=== PATIENT | male | born 1955 | race Caucasian/White ===

== ENCOUNTER 2023-12-05 09:41 | Emergency (ER) | payer OTHER, SELFPAY ==
[2023-12-05 09:46] VITALS: BP 131/81
--- NOTE | 2023-12-05 10:23 | ED.GENMED ---
History of Present Illness
<Lelia Amin PA-C - Last Filed: 12/05/23 18:11>
General
Chief Complaint: Back Pain
Source: patient
Exam Limitations: none
Time Seen by Provider: 12/05/23 09:58
Nursing documentation reviewed up to this point in time: agreed with
Travel History
Have you had any contact with someone who has COVID-19?: No
Do you have any symptoms of coronavirus? Fever > 100 degrees, chills, cough, shortness of breath, sore throat, loss of taste or smell, muscle aches, or headache?: No
History of Present Illness
History of Present Illness:
Patient is a 68-year-old male with history BPH, COPD presenting to the emergency department for evaluation of right lower back pain. Symptoms started acutely yesterday around 230 after he tripped and fell getting out of his car striking his back on
the open car door. He endorses an intermittent, sharp pain in right lower back that is worse with movement. He has no associated chest pain, shortness of breath, weakness/ numbness in lower extremities. He denies any dysuria or hematuria. He does
note some increased frequency of urination but states it is likely chronic due to his BPH.
Patient took a few regular strength Tylenol this morning with very minimal improvement.
Past History
<Lelia Amin PA-C - Last Filed: 12/05/23 18:11>
Past History
ED Past Medical History: COPD, GERD and Hypercholesterolemia
ED Past Surgical History: Appendectomy, Orthopedic and Other
Social History
Tobacco: Smoker
Drug: None
Personal: Other ()
Living: with family
Family History
Family History: Other
Phy Exam
<Lelia Amin PA-C - Last Filed: 12/05/23 18:11>
Physical Exam
Physical Exam:
General: In mild discomfort due to pain and non-toxic
Vitals: Vital signs stable, afebrile
HEENT: Atraumatic, normocephalic; pupils equal round reactive light bilaterally, no signs of trauma to face, protecting airway
Neck: appears supple, normal range of motion, no cervical spine or midline spinal tenderness
CV: Regular rate and rhythm, heart sounds normal, no evidence of cyanosis; chest wall nontender to palpation
Resp: Poor air movement bilaterally, no signs of respiratory distress no accessory muscle use
Abd: Soft, nontender, non-distended
Extremities: No deformities; strength 5 out of 5 in upper and lower extremities, sensation fully intact bilaterally
Back: Tenderness to right flank, no bruising or rash noted
Neuro: alert and oriented, speech normal, no focal motor deficits, no focal neurologic
Psych: Normal affect
Skin: Intact, no rashes or ecchymoses
Course
<Lelia Amin PA-C - Last Filed: 12/05/23 18:11>
Orders/Labs/Results
Orders:
Orders
12/05/23 10:36
Ketorolac [Toradol] 15 mg IM NOW STA
12/05/23 10:37
CT Abd/pel Without Iv Or Oral Urgent
Comment: recent fall, lateral rib pain
Reason For Exam: right flank pain
12/05/23 11:27
Urinalysis Reflex To Culture Urgent
Date Specimen was Collected: 12/05/23
Time Specimen was Collected: 11:18
Urine Microscopic Reflex Cult Urgent
Abnormal Lab Results
12/05/23
11:27
Leukocyte Esterase Rfl Trace A
(Negative)
Vital Signs
Initial and Last Documented VS:
Initial Vital Signs
Temp Pulse Resp BP Pulse Ox
98.1 F 77 18 131/81 98
12/05/23 09:46 12/05/23 09:46 12/05/23 09:46 12/05/23 09:46 12/05/23 09:46
Last Documented Vital Signs
Temp Pulse Resp BP Pulse Ox
98.1 F 76 18 108/80 94
12/05/23 09:46 12/05/23 13:50 12/05/23 13:50 12/05/23 13:50 12/05/23 13:50
<Vivek Campuzano DO - Last Filed: 12/05/23 10:37>
Orders/Labs/Results
Orders:
Orders
12/05/23 10:36
Ketorolac [Toradol] 15 mg IM NOW STA
12/05/23 10:37
CT Abd/pel Without Iv Or Oral Urgent
Comment: recent fall, lateral rib pain
Reason For Exam: right flank pain
12/05/23 11:27
Urinalysis Reflex To Culture Urgent
Date Specimen was Collected: 12/05/23
Time Specimen was Collected: 11:18
Urine Microscopic Reflex Cult Urgent
Abnormal Lab Results
12/05/23
11:27
Leukocyte Esterase Rfl Trace A
(Negative)
Vital Signs
Initial and Last Documented VS:
Initial Vital Signs
Temp Pulse Resp BP Pulse Ox
98.1 F 77 18 131/81 98
12/05/23 09:46 12/05/23 09:46 12/05/23 09:46 12/05/23 09:46 12/05/23 09:46
Last Documented Vital Signs
Temp Pulse Resp BP Pulse Ox
98.1 F 76 18 108/80 94
12/05/23 09:46 12/05/23 13:50 12/05/23 13:50 12/05/23 13:50 12/05/23 13:50
<Lelia Amin PA-C - Last Filed: 12/05/23 18:11>
MDM/Problems Addressed
Differential Diagnosis Includes:
Contusion, muscular strain, muscular spasm, hematoma, kidney stone
MDM/Problems Addressed:
Patient is 60-year-old male history of BPH, COPD presenting for evaluation of right flank pain following fall yesterday worse with movement. He fell backwards striking his right lower back on his open car door. He did not hit head or lose
conscious. He did not sustain any other injuries in fall. He denies any hematuria. He does have somewhat increased urinary frequency but likely due to BPH. Patient is well-appearing in mild distress due to pain. He is afebrile, hemodynamically
stable. Physical exam as documented above. He has tenderness to palpation of right flank and posterior lateral ribs. No bruising or rash noted to affected area. Given mechanism of injury�will get urinalysis and Noncontrast CT of abdomen pelvis.
Will give 15 Mg IM Toradol. Will reassess
Urinalysis shows no hematuria, with no signs of infection. CT shows no acute findings consistent with patient presentation, some constipation
Patient does note some improvement in pain following Toradol. His pain is now only occurring with lateral bending to the left. He is stable for discharge. Suspect likely contusion. Will send prescription for 60 mg ibuprofen as needed for pain.
Return precautions discussed. Discussed findings of constipation on CT. Recommended MiraLAX. Patient comfortable this plan. All questions answered.
Chronic conditions affecting care:
BPH, COPD, hyperlipidemia
Acute Exacerbation and/or Progression of Chronic Illness:
Contusion, constipation
<Lelia Amin PA-C - Last Filed: 12/05/23 18:11>
*Radiology
Radiology exam reviewed: preliminary read by ED provider and radiology read reviewed
*Pulse Oximetry
Patient hypoxic: no
*Revenue Coordinator Interpretation
Rate: Revenue Coordinator- N/A
*Critical Care Note
Total Time (30-74mins, 75-104mins- exclusive of procedures): Not Applicable
ED Attending Note
<Lelia Amin PA-C - Last Filed: 12/05/23 18:11>
-
Portions of this chart may have been created with voice recognition software.� Occasional wrong word or��sound alike� substitutions may have occurred due to the inherent limitations of voice recognition software.
<Vivek Campuzano, DO - Last Filed: 12/05/23 10:37>
ED Attending Note
Patient seen and examined by attending physician: Yes
I performed the substantive portion of visit, reviewed & personally made and approve the management plan that is documented in note by myself or TUNDE.: Yes
ED Attending Note:
I have seen and evaluated the patient with a [id number] encounter. I have spoken to the advance practicer provider and involved in the medical history, the physical exam, medical decision making.
Evaluation and management service: agree unless noted differently below.
Results interpretation: agree unless noted differently below.
Focused HPI: 68-year-old male presenting with recent fall. Patient now developing right flank pain. He does admit to increased urination but states this appears to be a chronic issue
Physical exam: Point tenderness to right flank along distal lateral ribs. No hematoma or rash noted
Medical Decision Making: Given his urinary symptoms, will obtain CT looking for evidence of kidney stone in addition looking for any evidence of rib fracture or hematoma
Discharge Plan
Departure
Patient Disposition: Home (Routine Discharge)
Date of Disposition: 12/05/23
Time of Disposition: 13:34
Patient with high blood pressure during this ER visit?: Yes
Condition: Good
Covid-19: Not Applicable
Discharge Problem:
Contusion, Constipation
Instructions: Constipation, Child (DC), Contusion (DC), BLOOD PRESSURE
Prescriptions:
New
ibuprofen 600 mg tablet
600 mg PO Q8H PRN (Reason: Pain) Qty: 15 0RF
No Action
atorvastatin [Lipitor] 80 MG tablet
80 mg PO DAILY
multivitamin 1 EACH tablet
1 ea PO DAILY
diphenhydramine HCl [Banophen] 25 MG capsule
50 mg PO HSPRN PRN (Reason: sleep)
albuterol sulfate 1 PUFF HFA aerosol inhaler
1 puff inhalation PRN PRN (Reason: sob)
ezetimibe
5 mg PO DAILY
Trelegy Ellipta
1 inh inhalation DAILY
doxycycline hyclate 100 mg capsule
100 mg PO BID 10 Days Qty: 20 0RF
prednisone 10 mg tablet
10 mg PO DIRECTED Qty: 30 0RF
Rx Instructions:
Taper as directed
Referrals:
[place] DO [Family Provider] -
Activity Restrictions/Additional Instructions:
- Return to the emergency room with any chest pain, shortness of breath, severe abdominal pain, intractable vomiting, significant flank pain, persistent blood in urine, numbness/tingling of lower extremities, weakness, worsening in current symptoms,
or any other concerns
-You can take ibuprofen 600 mg every 8 hours as needed for pain. This has been sent to your pharmacy. You can apply ice for comfort.
-Your CT scan performed today in the emergency department showed some signs of constipation. You can use MiraLAX twice a day for the next week. This can be purchased [id number].
-Follow-up with primary care for further evaluation/treatment
Interventions
Interventions:
*Risk Screen - Suicide Last Done: 12/05/23 09:47
*General Assessment Last Done: 12/05/23 09:47
*Neglect/Abuse Screening Last Done: 12/05/23 09:47
ED- Fall Risk Assessment Last Done: 12/05/23 13:44
*ED COVID-19 Vaccine History Last Done: 12/05/23 14:02
*Nursing Disposition Last Done: 12/05/23 14:02
ED-Musculoskeletal Assessment Last Done: 12/05/23 13:44
Discharge Date and Time
Discharge Date/Time: 12/05/23 13:55
[2023-12-05] MEDS: TORADOL 15 MG IM (11:11)
[2023-12-05 12:05] LABS: Urine Albumin Negative (Neg - Trace); Urine Bilirubin Negative (Negative); Urine Character Clear (Clear); Urine Color Yellow; Urine Glucose Negative (Negative); Urine Ketone Negative (Negative); Urine Leukocyte Trace (Negative); Urine Nitrite Negative (Negative); Urine Occult Blood Negative (Negative); Urine Specific Gravity 1.015 (<1.030); Urine Urobilinogen Negative (Neg - 1+); Urine pH 6.5 (5.0-9.0)
[2023-12-05 12:21] LABS: Urine Red Blood Cell 0-2 /HPF (0-2); Urine Squamous Cell 0-2 /LPF (Few)
[2023-12-05 13:50] VITALS: BP 108/80
== END 2023-12-05 13:55 | disposition home or self-care (01) ==
LOC: EMR 09:41
PROVIDERS: Physician Assistant; EMERGENCY PHYSICIAN Student in an Organized Health Care Education/Training Program; FAMILY PHYSICIAN Family Medicine
DX: S30.0XXA Contusion of lower back and pelvis, initial encounter (principal); K59.00 Constipation, unspecified; W19.XXXA Unspecified fall, initial encounter; N40.1 Benign prostatic hyperplasia with lower urinary tract symptoms; J44.9 Chronic obstructive pulmonary disease, unspecified; E78.00 Pure hypercholesterolemia, unspecified; K21.9 Gastro-esophageal reflux disease without esophagitis; F17.200 Nicotine dependence, unspecified, uncomplicated; Z90.49 Acquired absence of other specified parts of digestive tract
CPT/HCPCS: 99284; 74176; 81003; 81015

== ENCOUNTER 2023-12-05 20:24 | Emergency (ER) | payer OTHER, SELFPAY ==
[2023-12-05 20:27] VITALS: BP 177/101
[2023-12-05] MEDS: VALIUM 5 MG PO (21:45)
[2023-12-05] MEDS: LIDOCAINE 4% PATCH 1 PATCH TOPICAL (21:48)
[2023-12-05] MEDS: TORADOL 30 MG IM (21:52)
--- NOTE | 2023-12-05 22:03 | ED.GENMED ---
History of Present Illness
General
Chief Complaint: Back Pain
Source: patient
Exam Limitations: none
Time Seen by Provider: 12/05/23 21:14
Travel History
Have you had any contact with someone who has COVID-19?: No
Do you have any symptoms of coronavirus? Fever > 100 degrees, chills, cough, shortness of breath, sore throat, loss of taste or smell, muscle aches, or headache?: No
History of Present Illness
History of Present Illness:
68-year-old male presents for reevaluation. He was here earlier today after a fall he sustained yesterday. He complains of increasing spasm to the right lower back. CT scan of the abdomen and pelvis was done today which showed no obvious acute
finding. He definitely complains of spasm sensation that is worsened tonight. The ibuprofen that was prescribed is not helping. No leg pain. No urinary symptoms. No other plaints at this time
Past History
Past History
ED Past Medical History: COPD, GERD and Hypercholesterolemia
ED Past Surgical History: Appendectomy, Orthopedic and Other
Social History
Tobacco: Smoker
Drug: None
Personal: Other ()
Living: with family
Family History
Family History: Other
Phy Exam
Physical Exam
Physical Exam:
General: Well-appearing male no acute respiratory distress
HEENT: Normocephalic atraumatic
Musculoskeletal exam: Spasm noted to the paraspinous area of the lumbar spine more on the right side. Midline of the lower lumbar spine is nontender. Good range of motion to the lower extremities
Neurologic: Alert normal gait good sensation lower extremities
SKin: warm, no rashes
Ext: no cyanosis
Course
Orders/Labs/Results
Orders:
Orders
12/05/23 21:42
Diazepam [Valium] 5 mg .ROUTE .STK-MED ONE
Ketorolac [Toradol] 30 mg .ROUTE .STK-MED ONE
Lidocaine [Lidocaine 4% Patch] 1 patch .ROUTE .STK-MED ONE
12/05/23 21:45
Diazepam [Valium] 5 mg PO NOW STA
12/05/23 21:48
Lidocaine [Lidocaine 4% Patch] 1 patch TOPICAL DAILY ONE
12/05/23 21:51
Ketorolac [Toradol] 30 mg IM NOW STA
Vital Signs
Initial and Last Documented VS:
Initial Vital Signs
Temp Pulse Resp BP Pulse Ox
97.8 F 87 18 177/101 96
12/05/23 20:27 12/05/23 20:27 12/05/23 20:27 12/05/23 20:27 12/05/23 20:27
Last Documented Vital Signs
Temp Pulse Resp BP Pulse Ox
97.8 F 87 18 177/101 96
12/05/23 20:27 12/05/23 20:27 12/05/23 20:27 12/05/23 20:27 12/05/23 20:27
MDM/Problems Addressed
Differential Diagnosis Includes:
Low back pain. Suspect muscular spasm. Workup earlier today essentially negative. Will prescribe Lidoderm and Valium. Stable for discharge home.
*Critical Care Note
Total Time (30-74mins, 75-104mins- exclusive of procedures): Not Applicable
ED Attending Note
-
Portions of this chart may have been created with voice recognition software.� Occasional wrong word or��sound alike� substitutions may have occurred due to the inherent limitations of voice recognition software.
Discharge Plan
Departure
Patient Disposition: Home (Routine Discharge)
Date of Disposition: 12/05/23
Time of Disposition: 22:09
Patient with high blood pressure during this ER visit?: No
Discharge Problem:
Lumbar paraspinal muscle spasm
Instructions: Low Back Pain (DC)
Prescriptions:
New
diazepam [Valium] 5 mg tablet
5 mg PO BID PRN (Reason: muscle spasm) Qty: 10 0RF
lidocaine [Lidoderm] 5 % adhesive patch,medicated
1 patch topical DAILY Qty: 15 0RF
No Action
atorvastatin [Lipitor] 80 MG tablet
80 mg PO DAILY
multivitamin 1 EACH tablet
1 ea PO DAILY
diphenhydramine HCl [Banophen] 25 MG capsule
50 mg PO HSPRN PRN (Reason: sleep)
albuterol sulfate 1 PUFF HFA aerosol inhaler
1 puff inhalation PRN PRN (Reason: sob)
ezetimibe
5 mg PO DAILY
Trelegy Ellipta
1 inh inhalation DAILY
doxycycline hyclate 100 mg capsule
100 mg PO BID 10 Days Qty: 20 0RF
prednisone 10 mg tablet
10 mg PO DIRECTED Qty: 30 0RF
Rx Instructions:
Taper as directed
ibuprofen 600 mg tablet
600 mg PO Q8H PRN (Reason: Pain) Qty: 15 0RF
Referrals:
Le [place] DO [Family Provider] -
Activity Restrictions/Additional Instructions:
Use Lidoderm patches. Continue with warm compresses. Use muscle relaxer. Rest.
Interventions
Interventions:
*Risk Screen - Suicide Last Done: 12/05/23 20:27
*General Assessment Last Done: 12/05/23 20:27
*Neglect/Abuse Screening Last Done: 12/05/23 20:27
ED- Fall Risk Assessment Last Done: 12/05/23 20:54
*ED COVID-19 Vaccine History Last Done: 12/05/23 20:27
ED-Musculoskeletal Assessment Last Done: 12/05/23 20:54
[2023-12-05 22:09] VITALS: BP 125/84
== END 2023-12-05 22:28 | disposition home or self-care (01) ==
LOC: EMR 20:24
PROVIDERS: EMERGENCY PHYSICIAN Emergency Medicine; FAMILY PHYSICIAN Family Medicine
DX: M62.830 Muscle spasm of back (principal); J44.9 Chronic obstructive pulmonary disease, unspecified; K21.9 Gastro-esophageal reflux disease without esophagitis; E78.00 Pure hypercholesterolemia, unspecified; F17.200 Nicotine dependence, unspecified, uncomplicated; Z90.49 Acquired absence of other specified parts of digestive tract
CPT/HCPCS: 96372; 99282

== ENCOUNTER → 2024-01-31 13:36 | Outpatient (REF) | payer OTHER, SELFPAY | LOC: RAD 13:36 | PROVIDERS: ATTENDING PHYSICIAN Internal Medicine Cardiovascular Disease; FAMILY PHYSICIAN Family Medicine | DX: I73.9 Peripheral vascular disease, unspecified (principal) | CPT/HCPCS: 93922; 93925 ==

== ENCOUNTER 2024-09-15 13:55 | Emergency (ER) | payer OTHER, SELFPAY ==
[2024-09-15 13:55] VITALS: BMI 24.8
[2024-09-15 13:58] VITALS: BP 130/70
--- NOTE | 2024-09-15 14:07 | ED.GENMED ---
History of Present Illness
General
Chief Complaint: Back Pain
Source: patient
Exam Limitations: none
Time Seen by Provider: 09/15/24 14:07
Nursing documentation reviewed up to this point in time: agreed with
History of Present Illness
History of Present Illness:
Patient is a 69-year-old male who presents to the ER for evaluation of low back pain. Patient reports symptom 3�4 steps and fell face forward. He did not hit his back but reports he arched his back in the process. He has been having low back pain.
He saw his family doctor several days after that and was told to take ibuprofen and Tylenol however that was not relieving his symptoms. Several days ago he saw his primary care physician again and was given Valium. He feels that it is starting
to work but this morning he was very stiff low back pain with walking which is a prompted him to come to the ER. He denies any weakness of extremities. Denies any loss of bowel bladder. Denies any numbness tingling. Denies any saddle paresthesia
Past History
Past History
ED Past Medical History: COPD, GERD and Hypercholesterolemia
ED Past Surgical History: Appendectomy, Orthopedic and Other
Social History
Tobacco: Smoker
Drug: None
Personal: Other ()
Living: with family
Family History
Family History: Other
Review of Systems
Review of Systems
Allergies reviewed?: Yes
All Other Systems: ROS reviewed and negative except as documented in HPI and ROS
Constitutional: Reports no symptoms; Denies fever
Musculoskeletal: Reports back pain
Skin: Reports no symptoms
Neurological: Reports no symptoms
Psychiatric: Reports no symptoms
Phy Exam
General Physical Exam
General Presentation: no apparent distress
General age: appears stated age
General Skin: warm and dry
General Habitus: normal
General Mental: alert
General Hydration: appears well hydrated
Neurological Exam
Neurological Exam: alert, oriented x3 and other (Normal sensation to bilateral lower extremities normal dorsiflexion plantarflexion negative straight leg raise bilaterally)
Musculoskeletal Exam
Musculoskeletal Exam: full ROM and other (Normal inspection to low back no midline tenderness no abrasions)
Skin Exam
Skin Exam: normal color and warm/dry
Psychiatric Exam
Psychiatric Exam: normal mood/affect
Course
Orders/Labs/Results
Orders:
Orders
09/15/24 14:22
Lumbar Spine Complete, 4 View [CR Lumbar Spine Comp Min 4 Vw*] Urgent
Comment:
Reason For Exam: trauma
09/15/24 14:23
Ketorolac [Toradol] 30 mg IM NOW STA
Lidocaine [Lidocaine 4% Patch] 1 patch TOPICAL NOW STA
Apply Lidocaine patch(s) to:: low back
diazePAM [Valium Injection] 5 mg IM NOW STA
Vital Signs
Initial and Last Documented VS:
Initial Vital Signs
Temp Pulse BP Pulse Ox
98.1 F 92 130/70 94
09/15/24 13:58 09/15/24 13:58 09/15/24 13:58 09/15/24 13:58
Last Documented Vital Signs
Temp Pulse BP Pulse Ox
98.1 F 92 124/96 94
09/15/24 13:58 09/15/24 13:58 09/15/24 16:15 09/15/24 13:58
MDM/Problems Addressed
MDM/Problems Addressed:
Symptoms are consistent lumbar strain. Patient was given a prescription for Valium by his family doctor. I did give him IM Valium here along with IM Toradol which did seem to improve some of his symptoms. No radicular pain no neurological
deficits ambulatory with a steady gait will DC with continued ibuprofen Tylenol Valium heat and close outpt f/u with pcp.
*Radiology
Radiology exam reviewed: preliminary read by ED provider (no acute fx )
*Critical Care Note
Total Time (30-74mins, 75-104mins- exclusive of procedures): Not Applicable
ED Attending Note
-
Portions of this chart may have been created with voice recognition software.� Occasional wrong word or��sound alike� substitutions may have occurred due to the inherent limitations of voice recognition software.
Discharge Plan
Departure
Patient Disposition: Home (Routine Discharge)
Date of Disposition: 09/15/24
Time of Disposition: 16:00
Patient with high blood pressure during this ER visit?: Yes
Condition: Fair
Covid-19: Not Applicable
Discharge Problem:
Lumbar strain
Instructions: Low Back Pain (DC), Back Muscle Strain (DC), BLOOD PRESSURE
Prescriptions:
No Action
atorvastatin [Lipitor] 80 MG tablet
80 mg PO DAILY
multivitamin 1 EACH tablet
1 ea PO DAILY
diphenhydramine HCl [Banophen] 25 MG capsule
50 mg PO HSPRN PRN (Reason: sleep)
albuterol sulfate 1 PUFF HFA aerosol inhaler
1 puff inhalation PRN PRN (Reason: sob)
ezetimibe
5 mg PO DAILY
Trelegy Ellipta
1 inh inhalation DAILY
doxycycline hyclate 100 mg capsule
100 mg PO BID 10 Days Qty: 20 0RF
prednisone 10 mg tablet
10 mg PO DIRECTED Qty: 30 0RF
Rx Instructions:
Taper as directed
ibuprofen 600 mg tablet
600 mg PO Q8H PRN (Reason: Pain) Qty: 15 0RF
diazepam [Valium] 5 mg tablet
5 mg PO BID PRN (Reason: muscle spasm) Qty: 10 0RF
lidocaine [Lidoderm] 5 % adhesive patch,medicated
1 patch topical DAILY Qty: 15 0RF
Referrals:
Pinky Langston MD [Family Provider] -
Activity Restrictions/Additional Instructions:
Continue alternating with ibuprofen and Tylenol. You may take Valium as previously prescribed by her family doctor. Warm moist heat to affected area. Follow-up with your family doctor the next several days and return if any worsening of symptoms
Interventions
Interventions:
*Risk Screen - Suicide Last Done: 09/15/24 14:04
*General Assessment Last Done: 09/15/24 14:04
*Neglect/Abuse Screening Last Done: 09/15/24 14:04
ED- Fall Risk Assessment Last Done: 09/15/24 14:23
*ED COVID-19 Vaccine History Last Done: 09/15/24 14:18
*Nursing Disposition Last Done: 09/15/24 16:16
ED-Musculoskeletal Assessment Last Done: 09/15/24 14:23
Discharge Date and Time
Discharge Date/Time: 09/15/24 16:17
Print Language: [id number]
[2024-09-15] MEDS: TORADOL 30 MG IM (14:34)
[2024-09-15] MEDS: LIDOCAINE 4% PATCH 1 PATCH TOPICAL (14:34)
[2024-09-15] MEDS: VALIUM INJECTION 5 MG IM (14:35)
[2024-09-15 16:15] VITALS: BP 124/96
== END 2024-09-15 16:17 | disposition home or self-care (01) ==
LOC: EMR 13:55
PROVIDERS: EMERGENCY PHYSICIAN Emergency Medicine; FAMILY PHYSICIAN Student in an Organized Health Care Education/Training Program
DX: S39.012A Strain of muscle, fascia and tendon of lower back, initial encounter (principal); W19.XXXA Unspecified fall, initial encounter; J44.9 Chronic obstructive pulmonary disease, unspecified; K21.9 Gastro-esophageal reflux disease without esophagitis; E78.00 Pure hypercholesterolemia, unspecified; F17.200 Nicotine dependence, unspecified, uncomplicated; Z90.49 Acquired absence of other specified parts of digestive tract
CPT/HCPCS: 96372; 99284; 72110

== ENCOUNTER → 2024-10-01 09:06 | Outpatient (REF) | payer OTHER, SELFPAY | LOC: RAD 09:06 | PROVIDERS: ATTENDING PHYSICIAN Internal Medicine Critical Care Medicine; FAMILY PHYSICIAN Student in an Organized Health Care Education/Training Program | DX: F17.210 Nicotine dependence, cigarettes, uncomplicated (principal) | CPT/HCPCS: 71271 ==

== ENCOUNTER → 2025-10-06 09:43 | Outpatient (REF) | payer OTHER, SELFPAY | LOC: HWRAD 09:43 | PROVIDERS: ATTENDING PHYSICIAN Internal Medicine Critical Care Medicine; FAMILY PHYSICIAN Student in an Organized Health Care Education/Training Program | DX: F17.210 Nicotine dependence, cigarettes, uncomplicated (principal) | CPT/HCPCS: 71271 ==